=== PATIENT | male | born 1945 | race Caucasian/White ===

== ENCOUNTER 2018-08-17 07:40 | Day surgery (SDC) | payer OTHER, BC ==
[2018-08-16 14:53] VITALS: BMI 36.1
[2018-08-17 09:42] VITALS: TEMP 97.9
[2018-08-17 10:52] VITALS: BP 122/56; PULSE 59
--- NOTE | 2018-08-18 18:00 | PATH ---
Surgical Pathology Report Patient Name: KALYN TORRES [facility]. Rec. #: [id number] /Age/Gender: 1945 (Age: 72) / M Account: [id number] Location: [facility]-ENDOSCOPY Taken: 08/17/2018 Received: 08/17/2018 Reported: 08/18/2018 Physicians: Jennifer Jason M.D. Specimen(s) Received A: RECTAL POLYP B: BX TRANSVERSE COLON POLYP Clinical History Polyp surveillance, family history of colon cancer Postoperative diagnosis: Colon polyps, diverticulosis Final Diagnosis A. Rectum, polyps, POLYPECTOMY: Hyperplastic polyp(S). Polypoid colonic mucosa(S) with SMALL lymphoid aggregate. B. Transverse colon, polyps, POLYPECTOMY: Tubular adenoma. Hyperplastic polyp(S). Electronically Signed Nan Mac M.D. Gross Description A. Received in formalin, labeled "polyps rectum" are 5 black, irregular portions of soft tissue ranging from 0.2-0.4 cm. in greatest dimension. The specimens are submitted in toto in one cassette. B. Received in formalin, labeled "polyps transverse colon" are 8 black, irregular portions of soft tissue ranging from 0.1-0.6 cm. in greatest dimension. The specimens are submitted in toto in one cassette. DL/08/17/2018 saudi08/17/2018
== END 2018-08-17 10:55 | disposition home or self-care (01) ==
LOC: JASU-ENDO 07:40
PROVIDERS: ATTEND Internal Medicine Gastroenterology
PROC: 0DBP8ZX Excision of Rectum, Via Natural or Artificial Opening Endoscopic, Diagnostic (ICD-10-PCS; 2018-08-17)
PROC: 0DBL8ZX Excision of Transverse Colon, Via Natural or Artificial Opening Endoscopic, Diagnostic (ICD-10-PCS; principal; 2018-08-17 08:45)
DX: Z12.11 Encounter for screening for malignant neoplasm of colon (principal); Z86.010 Personal history of colon polyps; Z80.0 Family history of malignant neoplasm of digestive organs; K62.1 Rectal polyp; K63.5 Polyp of colon; D12.3 Benign neoplasm of transverse colon; K57.30 Diverticulosis of large intestine without perforation or abscess without bleeding; K64.8 Other hemorrhoids
CPT/HCPCS: 88305-TC

== ENCOUNTER 2022-03-20 04:16 | Day surgery (SDC) | payer OTHER, BC ==
[2022-03-18 14:27] VITALS: BMI 33.7
[2022-03-20 08:43] VITALS: TEMP 98.2
[2022-03-20 09:24] VITALS: BP 125/68; PULSE 57; RESP 15
== END 2022-03-20 09:40 | disposition home or self-care (01) ==
LOC: JASU-ENDO 04:16
PROVIDERS: ATTEND Internal Medicine Gastroenterology
PROC: 0DBC8ZX Excision of Ileocecal Valve, Via Natural or Artificial Opening Endoscopic, Diagnostic (ICD-10-PCS; 2022-03-20)
PROC: 0DBH8ZX Excision of Cecum, Via Natural or Artificial Opening Endoscopic, Diagnostic (ICD-10-PCS; principal; 2022-03-20 08:00)
DX: Z12.11 Encounter for screening for malignant neoplasm of colon (principal); D12.3 Benign neoplasm of transverse colon; D12.6 Benign neoplasm of colon, unspecified; K57.30 Diverticulosis of large intestine without perforation or abscess without bleeding
CPT/HCPCS: 82962; 88305-TC

== ENCOUNTER 2024-02-20 10:37 | Emergency (ER) | payer OTHER, BC ==
[2024-02-20 10:43] VITALS: BP 166/71; PULSE 66; RESP 18; TEMP 98.1; BMI 34.9
[2024-02-20] MEDS ORDERED: ACETAMINOPHEN 325 MG TABLET (FP) ONE (12:30)
[2024-02-20] MEDS ORDERED: METHOCARBAMOL 500 MG TABLET ONE (12:30)
[2024-02-20] MEDS ORDERED: LIDOCAINE 4% PATCH TP ONE (12:30)
[2024-02-20 12:31] LABS: BASO % 0.3 % (0-2.0); EOS % 1.5 % (0-4.5); HEMOGLOBIN 13.4 GM/dL (11.7-16.9); MCH 30.2 pg (25.7-33.7); MCHC 35.2 g/dl (32.0-35.9); MEAN CELL VOLUME 85.9 fl (80-96); MEAN PLT VOLUME 6.9 fl (7.5-11.1); MONO % 7.5 % (3.8-10.2); NEUT % 60.7 % (42.8-82.8); PLATELET COUNT 240 10^3/uL (134-434); RBC 4.42 M/mm3 (4.00-5.60); RDW 14.2 % (11.9-15.9); WHITE BLOOD COUNT 5.2 K/mm3 (4.0-10.0)
[2024-02-20] MEDS: LIDOCAINE 4% PATCH TP ONE (12:40)
[2024-02-20] MEDS: ACETAMINOPHEN 325 MG TABLET (FP) PO ONE (12:42)
[2024-02-20] MEDS: METHOCARBAMOL 750 MG TAB PO ONE (12:43)
[2024-02-20 13:02] LABS: POTASSIUM 4.2 mmol/L (3.5-5.1)
[2024-02-20 13:04] LABS: CALCIUM 9.4 mg/dL (8.5-10.1)
[2024-02-20 13:06] LABS: ALBUMIN 3.8 g/dl (3.4-5.0); BLOOD UREA NITROGEN 14.9 mg/dL (7-18)
[2024-02-20 13:09] LABS: CREATININE 0.9 mg/dL (0.55-1.3)
[2024-02-20 13:11] LABS: TOT PROT 6.9 g/dl (6.4-8.2)
[2024-02-20] MEDS ORDERED: LIDOCAINE PATCH REMOVAL MC SCH (22:00)
== END 2024-02-20 14:05 | disposition home or self-care (01) ==
LOC: JER 10:37
DX: M54.89 Other dorsalgia (principal)
CPT/HCPCS: 36415; 71046-TC-FY; 80053; 84484; 85025; 93005; 93010; 99285-25